=== PATIENT | female | born 1975 | race Caucasian/White ===

== ENCOUNTER 2020-04-18 10:02 | Outpatient (CLI) | payer BC, SELFPAY ==
--- NOTE | 2020-04-18 10:29 | MM_ITS ---
WS: [id number] SCREENING DIGITAL MAMMOGRAM WITH CAD HISTORY: SCREEN COMPARISON: None available. Bilateral CC and MLO views submitted. Computer aided detection analyzed. Breast composition: There are scattered areas of fibroglandular density. No suspicious masses, microc alcifications or architectural distortion. MM/[place] [id number] IMPRESSION: BI-RADS: 1-Negative FOLLOW UP: 1 Year Follow-up
== END 2020-04-18 10:03 | disposition home or self-care (01) ==
LOC: RADSHAW 10:08
PROVIDERS: PCP Nurse Practitioner Family; Visit Provider Nurse Practitioner Family
DX: Z12.31 Encounter for screening mammogram for malignant neoplasm of breast (principal)
CPT/HCPCS: 77067

== ENCOUNTER → 2022-10-03 15:11 | Outpatient (BNVA) | payer BC, SELFPAY | PROVIDERS: PCP Nurse Practitioner Family; Visit Provider Podiatrist Foot & Ankle Surgery | DX: S91.341A Puncture wound with foreign body, right foot, initial encounter (principal); W45.8XXA Other foreign body or object entering through skin, initial encounter; L03.90 Cellulitis, unspecified | CPT/HCPCS: 73630 ==

== ENCOUNTER 2022-10-05 10:24 | Day surgery (SDC) | payer BC, SELFPAY ==
[2022-10-04 10:28] VITALS: BMI 44.8
[2022-10-05 10:45] VITALS: BP 176/134; PULSE 96; RESP 18; TEMP 36.4; O2SAT 98
[2022-10-05] MEDS: CELEcoxib 200 mg Capsule 400 MG PO (10:52)
[2022-10-05] MEDS: sodium chloride 0.9% 1,000 ML 30 ML IV (10:53)
[2022-10-05] MEDS: gabapentin 300 mg Capsule PO (10:53)
--- NOTE | 2022-10-05 10:57 | ANES.PREANE2 ---
Pre-Anesthetic Assessment Height/Weight: Height 1.57 m Weight 111.13 kg Temp Pulse Resp BP Pulse Ox O2 Del Method 97.6 F 96 18 176/134 98 10/05/22 10:45 10/05/22 10:45 10/05/22 10:45 10/05/22 10:45 10/05/22 10:45 10/05/22 10:45 Preop Diagnosis: Deep foreign body right foot Operation Date: 10/05/22 12:00 Proposed Procedures p Foreign Body Removal(Right) - Royce Little DPM Familial anesthetic complications: None Was Beta Milton taken within 24 hours: N/A Was Clonidine taken within 24 hours: N/A Last intake: Intake Last Liquid Date 09/23/22 Last Liquid Time 21:00 Last Solid Date 10/04/22 Last Solid Time 21:00 Social No alcohol and No tobacco Exam alert, oriented x 3, clear to auscultation bilaterally and regular rate & rhythm Airway Mallampati: Class III Dentition: full CV/HEM Hypertension GI Gastroesophageal Reflux Disease Metabolic Morbid Obesity Anesthetic Plan ASA status: 3 Anesthesia: MAC Risk of > 500 ml blood loss (7ml/kg in children): No Medications/Allergies Home Medications Medication Instructions Recorded Confirmed Last Taken Type duloxetine 40 mg capsule,delayed 40 mg PO DAILY 10/03/22 10/04/22 10/04/22 History release hydroxyzine HCl 10 mg tablet 10 mg PO TID PRN Anxiety 10/03/22 10/04/22 10/04/22 History omeprazole 20 mg capsule,delayed 20 mg PO DAILY 10/03/22 10/04/22 10/04/22 History release valsartan 40 mg tablet 40 mg PO BID 10/03/22 10/04/22 10/04/22 History Allergies Allergy/AdvReac Type Severity Reaction Status Date / Time No Known Allergies Allergy Verified 10/05/22 10:39 Data Anesthesia Cardiac Studies: No Data to Display
[2022-10-05 11:03] LABS: OR HCG Qualitative Urine Negative (Negative)
--- NOTE | 2022-10-05 11:26 | W.PM.OPSUD ---
Surgery/Procedure H&P Update DATE OF PROCEDURE: October 05, 2022 DATE H&P PERFORMED: 10/03/22 CHANGES TO PREVIOUS DOCUMENTATION: No changes PREOP DIAGNOSIS: Deep foreign body right foot PLANNED PROCEDURE: Operation Date: 10/05/22 12:00 Proposed Procedures p Foreign Body Removal(Right) - Royce Little DPM
[2022-10-05 11:30] LABS: Blood Urea Nitrogen 7 mg/dL (6-20); Calcium 9.4 mg/dL (8.5-10.5); Carbon Dioxide 23 mmol/L (22-29); Chloride 100 mmol/L (98-107); Glomerular Filtration Rate 76.6 mL/min (90-130); Glucose 91 mg/dL (65-115); Osmolality Calculated 280 mOsm/kg (285-295); Sodium 136 mmol/L (136-145)
[2022-10-05] MEDS: ceFAZolin 2,000 MG in sodium chloride 0.9% (plus) 50 ML 100 MG IV (11:35)
--- NOTE | 2022-10-05 12:07 | P.OP_ITS ---
Operative Report Date of procedure: October 05, 2022 Pre-op diagnosis: Preop Diagnosis Deep foreign body right foot Post-op diagnosis: Same Post-op findings: Large wooden fragment plantar aspect right foot extending from subcutaneous tissue and deep into the fascia. No surrounding purulence. No signs of deep space abscess or infection Procedure done: Right foot deep foreign body excision CPT 50475 Specimens removed/disposition: Wooden splinter fragment removed Surgeon: Jose Martin Tijerina.P.[facility] Complications: None Findings: See above Procedure: Patient is a 47-year-old female that has a history of deep tissue foreign body since July 2022. The patient has had the aforementioned chief complaint for some time. Conservative treatment measures including attempts at an office removal have been attempted and the patient has opted for surgical intervention at this time. A lengthy discussion regarding the procedure, including risks and complications has been had with the patient and is noted in the recent clinic note. Written and verbal consent have been obtained. All patient questions have been answered to the patient?s satisfaction. No written or verbal guarantees h ave been given or implied. The patient has been NPO since midnight. The history has been reviewed and the history and physical is current. The signed consent was confirmed and placed in the patient chart. Patient imaging has been reviewed and is consistent with the diagnosis. Under mild sedation, the patient was brought into the operating room and placed on the table in the supine position. IV antibiotics were given by the anesthesia team as preoperative surgical prophylaxis. IV sedation was then performed by the anesthesiateam. A pneumatic tourniquet was then placed about the right ankle. The operative extremity was then prepped and draped in the usual fashion. The extremity was then elevated and exsanguinated before the tourniquet was inflated to 250 mmHg. After inflation, the following procedure was then performed. Attention was directed to the plantar aspect of the right foot where a puncture entry point was visualized under the fourth metatarsal head. Indurated tissue was palpated moving in a proximal lateral fashion under the skin. A #15 blade was used to make a 2 cm incision over the area. Dissection was carried down through subcutaneous and superficial fascia to the level of the foreign body. Was noted to be darkened discoloration with the appearance of wood. Dissection was carried out around the foreign body using mosquito hemostat. It was then grasped with a hemostat and retrieved from the foot. The fragment was noted to be wood and measuring 2.5 cm in length. The site was inspected and no remaining foreign body fragments remained. The site was then irrigated with sterile saline before attention was directed to closure. Skin was closed with 3-0 nylon in simple interrupted fashion before being dressed with Xeroform, 4 x 4 gauze, Kerlix and Coban. The tourniquet was let down and good hyperemic response was noted to all digits of the right foot. The patient tolerated the procedure and anesthesia well and without complication. The patient was transported from the operating room to the recovery room with vital signs stable and vascular status intact to all digits of the right foot. The patient was given both written and verbal instructions to remain weightbearing as tolerated in postoperative shoe to the operative extremity, to keep dressings/splint clean, dry and intact and to take pain medication as directed. The patient will follow-up in the outpatient setting at their scheduled appointment. The patient was discharged with my personal number and was instructed to call if any questions or issues should arise. They were discharged home once anesthesia criteria was met.
[2022-10-05 12:12] VITALS: BP 138/96; PULSE 78; RESP 15; TEMP 36.1; O2SAT 94
[2022-10-05 12:15] VITALS: BP 136/101; PULSE 85; RESP 16; O2SAT 94
[2022-10-05 12:24] VITALS: BP 138/93; PULSE 77; RESP 15; TEMP 36.1; O2SAT 93
--- NOTE | 2022-10-05 12:28 | ANE.PACU2 ---
Inpatient post-anesthesia follow up: Airway intact: Yes Vital signs: Temperature 97.0 F Pulse Rate 77 Respiratory Rate 15 Blood Pressure 138/93 Pulse Oximetry 93 Oxygen Delivery Me thod Room Air Oxygen Flow Rate 6 Fraction of Inspir ed Oxygen Hydration adequate: Yes Nausea and vomiting: No Pain level: 1 Mental status: Baseline
[2022-10-05 12:32] VITALS: BP 134/106; PULSE 74; RESP 18; TEMP 36.2; O2SAT 96
== END 2022-10-05 12:55 | disposition home or self-care (01) ==
PROVIDERS: Anesthesiology; PCP Nurse Practitioner Family; Visit Provider Podiatrist Foot & Ankle Surgery
PROC: (CPT 28192; principal; 2022-10-05 12:00)
DX: S91.341A Puncture wound with foreign body, right foot, initial encounter (principal); K21.9 Gastro-esophageal reflux disease without esophagitis; I10 Essential (primary) hypertension; E66.01 Morbid (severe) obesity due to excess calories; Z68.41 Body mass index [BMI] 40.0-44.9, adult; W45.8XXA Other foreign body or object entering through skin, initial encounter
CPT/HCPCS: 28192; 80048; 84703; J0690; J1100; J2250; J2405; J2704; J3010; J3490; J7030

== ENCOUNTER 2023-07-31 14:46 | Outpatient (CLI) | payer BC, SELFPAY ==
--- NOTE | 2023-07-31 14:50 | MM_ITS ---
WS: [id number] BILATERAL 3D TOMOSYNTHESIS DIGITAL SCREENING MAMMOGRAM WITH CAD CLINICAL INFORMATION: SCREENING HISTORY: Screening mammogram. No current complaints. COMPARISON: 2020 TECHNIQUE: Bilateral CC and MLO views. FINDINGS: Fatty-replaced breasts bilaterally. No suspicious focal mass, asymmetry, calcifications, or splunk architect ural distortion. No evidence of malignancy. IMPRESSION: MM/[place] [id number] BI-RADS: 1-Negative FOLLOW UP: 1 Year Follow-up Recommend return to annual screening mammography.
== END 2023-07-31 14:47 | disposition home or self-care (01) ==
LOC: RAD 14:47
PROVIDERS: PCP Nurse Practitioner Family; Visit Provider Nurse Practitioner Family
DX: Z12.31 Encounter for screening mammogram for malignant neoplasm of breast (principal)
CPT/HCPCS: 77063; 77067

== ENCOUNTER 2024-02-12 08:49 | Day surgery (SDC) | payer BC, SELFPAY ==
[2024-02-12 09:07] VITALS: BMI 42.0
[2024-02-12 09:09] VITALS: BP 148/114; PULSE 102; RESP 16; TEMP 36.2; O2SAT 97
[2024-02-12] MEDS: sodium chloride 0.9% 1,000 ML 30 ML IV (09:15)
--- NOTE | 2024-02-12 09:29 | ANES.PREANE2 ---
Pre-Anesthetic Assessment Height/Weight: Height 1.57 m Weight 104.326 kg Temp Pulse Resp BP Pulse Ox O2 Del Method 97.2 F L 102 H 16 148/114 97 Room Air 02/12/24 09:09 02/12/24 09:09 02/12/24 09:09 02/12/24 09:09 02/12/24 09:09 02/12/24 09:09 Operation Date: 02/12/24 09:45 Proposed Procedures p EGD 96469, 04583, G0121, K21.9, Z12.11(Not Applicable) - Gualberto Campos DO s Colonoscopy(Not Applicable) - Gualberto Campos DO Was Beta Milton taken within 24 hours: N/A Was Clonidine taken within 24 hours: N/A Last intake: Intake Last Liquid Date 02/11/24 Last Liquid Time 23:00 Last Solid Date 02/10/24 Last Solid Time 22:00 Social No alcohol and No tobacco Exam alert, oriented x 3, clear to auscultation bilaterally and regular rate & rhythm Airway Submandibular: within normal limits Cervical ROM: within normal limits Mallampati: Class I History/ROS No significant history except as noted and No significant complaints Pulmonary None reported CV/HEM Hypertension None reported Hepatic None reported GI Gastroesophageal Reflux Disease controlled per patient Metabolic Morbid Obesity [facility] [place] None reported Neuropsych Anxiety and Depression Anesthetic Plan ASA status: 2 Anesthesia: Anesthesia Evaluation and MAC Risk of > 500 ml blood loss (7ml/kg in children): Yes, adequate IV access and fluids planned Medications/Allergies Home Medications Medication Instructions Recorded Confirmed Last Taken Type duloxetine 40 mg capsule,delayed 40 mg PO DAILY 10/03/22 02/12/24 02/11/24 History release valsartan 40 mg tablet 40 mg PO DAILY 10/03/22 02/12/24 02/11/24 History pantoprazole 40 mg tablet,delayed 40 mg PO BID 6 weeks #84 tabs 12/30/23 02/12/24 02/11/24 Rx release (Protonix) buspirone 10 mg tablet 10 mg PO BID PRN Anxiety 02/10/24 02/12/24 02/10/24 History Allergies Allergy/AdvReac Type Severity Reaction Status Date / Time No Known Allergies Allergy Verified 02/10/24 11:19 Current Medications Generic Name Dose Route Start Last Admin Trade Name Freq PRN Reason Stop Dose Admin Sodium Chloride 1,000 mls @ 30 mls/hr 02/12/24 09:00 02/12/24 09:15 Sodium Chloride 0.9% IV 02/13/24 08:59 30 mls/hr .Q24H KIERAN Administration PFSH Anesthesia Medical History (Updated 12/30/23 @ 10:22 by Gualberto Campos DO) Hypertension Anxiety Depression Kidney stone Data Anesthesia Cardiac Studies: No Data to Display
--- NOTE | 2024-02-12 09:38 | P.HP_ITS ---
Providers/Chief Complaint Primary Care Provider: Digna Ahuja NP Chief Complaint: K21.9, Z12.11 History of Present Illness Diana Graham is a 48 year old female Review of Systems 2 General: Reports: 10 or more systems reviewed and unremarkable except in HPI and below Medications/Allergies Home Medications Medication Instructions Recorded Confirmed Last Taken Type duloxetine 40 mg capsule,delayed 40 mg PO DAILY 10/03/22 02/12/24 02/11/24 History release valsartan 40 mg tablet 40 mg PO DAILY 10/03/22 02/12/24 02/11/24 History pantoprazole 40 mg tablet,delayed 40 mg PO BID 6 weeks #84 tabs 12/30/23 02/12/24 02/11/24 Rx release (Protonix) buspirone 10 mg tablet 10 mg PO BID PRN Anxiety 02/10/24 02/12/24 02/10/24 History Allergies Allergy/AdvReac Type Severity Reaction Status Date / Time No Known Allergies Allergy Verified 02/10/24 11:19 PFSH Acute PFSH: Medical History (Updated 12/30/23 @ 10:22 by Gualberto Campos DO) Hypertension Anxiety Depression Kidney stone Vitals/I&O/Wt Last Vital Signs Temp 97.2 F L 02/12/24 09:09 Pulse 102 H 02/12/24 09:09 Resp 16 02/12/24 09:09 BP 148/114 02/12/24 09:09 Pulse Ox 97 02/12/24 09:09 O2 Del Method Room Air 02/12/24 09:09 Weight last 48 hrs Weight 230 lb A&P Assessment and plan (1) GERD (gastroesophageal reflux disease): (2) Colon cancer screening: Plan EGD and colonoscopy Attestations Medical Necessity Statement*: Home Coding Level of Care Code Acute Code for Chg Fwd Diagnoses GERD (gastroesophageal reflux disease) K21.9 Colon cancer screening Z12.11
[2024-02-12 10:12] VITALS: BP 133/97; PULSE 83; RESP 14; TEMP 36.4; O2SAT 95
[2024-02-12 10:27] VITALS: BP 135/82; PULSE 77; RESP 18; O2SAT 97
--- NOTE | 2024-02-12 10:50 | ANE.PACU2 ---
Inpatient post-anesthesia follow up: Airway intact: Yes Vital signs: Temperature 97.5 F Pulse Rate 77 Respiratory Rate 18 Blood Pressure 135/82 Pulse Oximetry 97 Oxygen Delivery Me thod Room Air Oxygen Flow Rate 3 Fraction of Inspir ed Oxygen Hydration adequate: Yes Nausea and vomiting: No Pain level: 1 Mental status: Baseline
== END 2024-02-12 10:50 | disposition home or self-care (01) ==
PROVIDERS: PCP Nurse Practitioner Family; Visit Provider Surgery
PROC: 0DJ08ZZ Inspection of Upper Intestinal Tract, Via Natural or Artificial Opening Endoscopic (ICD-10-PCS; CPT 43235; principal; 2024-02-12 09:45)
PROC: 0DJD8ZZ Inspection of Lower Intestinal Tract, Via Natural or Artificial Opening Endoscopic (ICD-10-PCS; CPT 45378; 2024-02-12 09:45)
DX: Z12.11 Encounter for screening for malignant neoplasm of colon (principal); K21.9 Gastro-esophageal reflux disease without esophagitis; K64.8 Other hemorrhoids; D12.2 Benign neoplasm of ascending colon; K29.70 Gastritis, unspecified, without bleeding; I10 Essential (primary) hypertension; F41.9 Anxiety disorder, unspecified; F32.A Depression, unspecified; E66.01 Morbid (severe) obesity due to excess calories; Z68.41 Body mass index [BMI] 40.0-44.9, adult
CPT/HCPCS: 43239; 45385; 88305; J2704; J3010; J7030

== ENCOUNTER 2024-08-03 12:51 | Outpatient (CLI) | payer BC, SELFPAY | END 2024-08-03 12:52 | disposition home or self-care (01) | LOC: SLEEP 12:52 | PROVIDERS: PCP Nurse Practitioner Family; Visit Provider Nurse Practitioner Family | DX: G47.33 Obstructive sleep apnea (adult) (pediatric) (principal) | CPT/HCPCS: G0399 ==

== ENCOUNTER 2025-01-16 12:42 | Emergency (ER) | payer BC, SELFPAY ==
[2025-01-16 13:02] VITALS: BP 136/88; PULSE 112; RESP 16; TEMP 36.9; O2SAT 97; BMI 45.7
--- NOTE | 2025-01-16 13:12 | XRR_ITS ---
PROCEDURE INFORMATION: Exam: XR Left Finger(s) Exam date and time: 01/16/2025 1:48 PM Age: 49 years old Clinical indication: Injury or trauma; Fall; Blunt trauma (contusions or hematomas); Left; Little finger; Additional info: Injury; 5th TECHNIQUE: Imaging protocol: Radiologic exam of the left fingers. Views: Minimum 2 views. COMPARISON: No relevant prior studies available. FINDINGS: Bones/joints: The lateral view best demonstrates dorsomedial displacement/dislocation of the mid phalanx the distal interphalangeal/DIP joint of the 5th or little finger. Visualized bony cortical margins and articulations appear to be otherwise intact and in the range of normal. Soft tissues: Associated soft tissue swelling about the 5th digit DIP dislocation. A partially opaque ring-like artifact is seen in the base of the 4th or ring finger digit. XR/XR finger LT min 2V [id number] IMPRESSION: Complete dislocation of the DIP joint of the 5th or little finger digit.
--- NOTE | 2025-01-16 13:49 | W.ED.UPPEXIN ---
HPI - Extremity Injury (Upper) General: Chief Complaint: Extremity Injury, Upper Stated Complaint: left hand finger injury Time Seen by Provider: 01/16/25 13:06 Source: patient Mode of arrival: ambulatory Limitations: no limitations History of Present Illness: Patient is a nice 49-year-old female presents to ED today for evaluation of a left pinky finger injury that she sustained after a fall-was getting off a horse. She denies any other injuries at this time. Reports deformity to the finger. complaint: injury to: left and finger Onset (ago): hour(s) Other Extremity Injury: Left: fingers Other injuries: none Place: outdoors Severity: mild Relieving factors: immobilization Exacerbating factors: movement of extremity Context: fall and direct blow Associated symptoms: Reports no associated symptoms Related Data Home Medications ?Medication ?Instructions ?Recorded ?Confirmed duloxetine 40 mg capsule,delayed 40 mg PO DAILY 10/03/22 03/16/24 release valsartan 40 mg tablet 40 mg PO DAILY 10/03/22 03/16/24 buspirone 10 mg tablet 10 mg PO BID PRN Anxiety 02/10/24 03/16/24 Previous Rx's ?Medication ?Instructions ?Recorded pantoprazole 40 mg tablet,delayed 40 mg PO BID 6 weeks #84 tabs 12/30/23 release (Protonix) Allergies Allergy/AdvReac Type Severity Reaction Status Date / Time No Known Allergies Allergy Verified 02/10/24 11:19 Review of Systems Musc: Reports: extremity pain (L pinky finger) Neuro: Denies: numbness in extremities or sensory changes PFS ED PFSH: Medical History Tubular adenoma of colon Family history of colon cancer Hypertension Anxiety Depression Kidney stone Surgical History History of esophagogastroduodenoscopy (EGD) Hx of colonoscopy Social History Smoking and tobacco/nicotine status: never used tobacco/nicotine Second hand smoke exposure: No Alcohol intake: current Alcohol intake frequency: holidays/special occasions only Substance/Drug Use: never Physical Exam Const: COMMON NORMALS: no acute distress, average body habitus, no limitations, healthy appearing, alert and well nourished Extremity: COMMON NORMALS: capillary refill normal GENERAL: Yes normal exam except as noted LEFT UPPER EXTREMITY: Yes hand & digits (deformity L pinky finger (fx vs dislocation at PIP joint)) Left hand and digits: Yes neurovascular exam (normal) Neuro: COMMON NORMALS: moves all extremities, no focal motor deficits and no sensory deficits noted SENSORIUM/ORIENTATION: Yes alert Procedures Orthopedic Joint Reduction Joint #1: Joint Reduction Location: finger (L 5th PIP joint) Analgesia: nerve block Local Anesthesia: lidocaine 2% (digital block) Amount of anesthesic used (mL): 2.0 Technique used: traction/counter-traction Post-reduction neuro exam: intact Post-reduction vascular: intact Post Reduction X-Ray Obtained: Yes Post Reduction X-Ray Results: reduced Splint Applied: Yes Course Vital Signs: Vital signs: Vital Signs Temperature 98.4 F 01/16/25 13:02 Pulse Rate 112 H 01/16/25 13:02 Respiratory Rate 16 01/16/25 13:02 Blood Pressure 136/88 01/16/25 13:02 Pulse Oximetry 97 01/16/25 13:02 Oxygen Delivery Me thod Room Air 01/16/25 13:02 MDM - Extremity Injury (Upper) Medical Decision Making Patient here with a PIP joint dislocation of her left pinky finger. This was successfully reduced without difficulty. Finger will be splinted and she can follow-up with primary care next week for re-evaluation. Medical Records I reviewed the patient's medical records. XR interpretation done by ED provider, pending radiology final review Discharge Plan Discharge Patient Disposition: Home Clinical Impression: Dislocation of PIP joint of finger Qualifiers: Encounter type: initial encounter Qualified Code(s): S63.289A - Dislocation of proximal interphalangeal joint of unspecified finger, initial encounter Condition: Stable Prescriptions: No Action pantoprazole [Protonix] 40 mg tablet,delayed release (DR/EC) 40 mg PO BID 42 Days Qty: 84 1RF duloxetine 40 mg capsule,delayed release(DR/EC) 40 mg PO DAILY valsartan 40 mg tablet 40 mg PO DAILY buspirone 10 mg tablet 10 mg PO BID PRN (Reason: Anxiety) Discharge Orders: Discharge ED (Routine); Ordered 01/16/25 Ordered By: Mercedes Suarez Referrals: Digna Ahuja NP [Primary Care Provider, Unknown] Activity Restrictions/Additional Instructions: Finger was reduced successfully here in the emergency department. Wear your finger splint at all times apart from showering or bathing over the next 1 to 2 weeks. Please follow-up with primary care next week for reevaluation. Print Language: Hebrew Coding Level of Care Code ED Supplier Quality Manager for Risa Hayes
--- NOTE | 2025-01-16 14:07 | XRR_ITS ---
PROCEDURE INFORMATION: Exam: XR Left Finger(s) Exam date and time: 01/16/2025 2:14 PM Age: 49 years old Clinical indication: Injury or trauma; Fall; Blunt trauma (contusions or hematomas); Left; Little finger; Additional info: Post reduction film TECHNIQUE: Imaging protocol: Radiologic exam of the left fingers. Views: Minimum 2 views. COMPARISON: CR (UP EXM, ) 16/01/2025 13:48 FINDINGS: Bones/joints: Relative anatomic repositioning is felt to be present in comparison to the earlier completely dislocated PIP joint of the 5th/little finger. Soft tissues: Partially opaque ring-like artifact is seen base of the 4th/ring finger. XR/XR finger LT min 2V [id number] IMPRESSION: Reduction of the previously seen PIP joint dislocation.
== END 2025-01-16 14:54 | disposition home or self-care (01) ==
PROVIDERS: Emergency Provider Physician Assistant; PCP Nurse Practitioner Family
DX: S63.289A Dislocation of proximal interphalangeal joint of unspecified finger, initial encounter (principal); I10 Essential (primary) hypertension; V80.010A Animal-rider injured by fall from or being thrown from horse in noncollision accident, initial encounter
CPT/HCPCS: 26770; 73140; 99283

== ENCOUNTER 2025-06-14 13:49 | Outpatient (CLI) | payer BC, SELFPAY ==
--- NOTE | 2025-06-14 13:52 | MM_ITS ---
WS: [id number] BILATERAL 3D TOMOSYNTHESIS DIGITAL SCREENING MAMMOGRAPHY WITH CAD CLINICAL INFORMATION: SCREENING HISTORY: Screening mammogram. No current complaints. COMPARISON: 2023 TECHNIQUE: Bilateral CC and MLO views. FINDINGS: Scattered fibroglandular densities bilaterally. No suspicious focal mass, asymmetry, calcifications, or architectural distortion. No evidence of malignancy. MM/MM scr BI tomosynthesis [id number] IMPRESSION: DENSITY: There are scattered areas of fibroglandular density. BI-RADS: 1 - Negative. FOLLOW UP: 1 Year Follow-up Recommend return to annual screening mammography.
== END 2025-06-14 13:50 | disposition home or self-care (01) ==
LOC: RAD 13:50
PROVIDERS: PCP Nurse Practitioner Family; Visit Provider Nurse Practitioner Family
DX: Z12.31 Encounter for screening mammogram for malignant neoplasm of breast (principal); R92.313 Mammographic fatty tissue density, bilateral breasts
CPT/HCPCS: 77063; 77067